=== PATIENT | male | born 1985 | race Caucasian/White ===

== ENCOUNTER 2024-05-12 05:52 | Emergency (ER) | payer SELFPAY ==
[~2024-05-12] VITALS: Ht 180.3 cm; Wt 94.3 kg
[2024-05-12 06:11] VITALS: BP 145/80; PULSE 82; RESP 20; TEMP 98.7
[2024-05-12] MEDS ORDERED: ZOFRAN ONE (06:16)
[2024-05-12] MEDS ORDERED: PROTONIX IV IV ONE (06:16)
[2024-05-12] MEDS ORDERED: NS 1000ML 1,000 ML ONE (06:16)
[2024-05-12] MEDS ORDERED: TORADOL ONE (06:16)
[2024-05-12] MEDS: ZOFRAN IV STA (06:22)
[2024-05-12] MEDS: NS 1000ML 1,000 ML IV STA (06:22)
[2024-05-12] MEDS: PROTONIX IV IV STA (06:22)
[2024-05-12] MEDS: TORADOL IV STA (06:23)
[2024-05-12 06:34] LABS: BASOPHIL # 0.1 10^3/uL (0.0-0.1); BASOPHIL % 0.6 % (0.2-1.2); EOSINOPHIL # 0.1 10^3/uL (0.0-0.2); EOSINOPHIL % 0.6 % (0.0-5.0); HEMATOCRIT(ML) 42.4 % (37.0-53.0); HEMOGLOBIN 14.8 g/dL (13.9-16.3); LYMPHOCYTES # 1.95 10^3/uL1 (1.0-4.8); LYMPHOCYTES % 22.8 % (24.0-44.0); MEAN CORP HGB 31.2 pg (26-34); MEAN CORP HGB CONCENTRATION 34.9 g/dL (33-36.5); MEAN CORP VOLUME 89.3 fL (78-100); MONOCYTES # 0.6 10^3/uL (0.3-0.8); MONOCYTES % 6.7 % (5.0-12.0); NEUTROPHIL # 5.9 10^3/uL (1.8-7.7); NEUTROPHILS % 69.1 % (41.0-85.0); PLATELET COUNT 368 10^3/uL (150-400); RED BLOOD CELL 4.75 10^6/uL (4.50-5.90); RED CELL DISTRIBUTION WIDTH 11.7 % (11.5-14.5); WHITE BLOOD CELL 8.6 10^3/uL (4.5-11.0)
[2024-05-12 06:36] LABS: +ADD MANUAL DIFF(NO CHRG) NO
[2024-05-12] MEDS ORDERED: LIDOCAINE HCL VISCOUS ONE (06:46)
[2024-05-12] MEDS ORDERED: BENTYL IM ONE (06:46)
[2024-05-12] MEDS ORDERED: MYLANTA ONE (06:46)
[2024-05-12] MEDS: MYLANTA PO STA (06:50)
[2024-05-12] MEDS: LIDOCAINE HCL VISCOUS MM STA (06:51)
[2024-05-12] MEDS: BENTYL IM STA (06:51)
[2024-05-12 06:58] LABS: PROTHROMBIN PROTIME 9.9 SEC (9.3-11.6)
[2024-05-12 07:38] VITALS: BP 140/72; PULSE 83; RESP 20; TEMP 98.7
[2024-05-12] MEDS ORDERED: ONDA-226 PO (07:58)
[2024-05-12 08:15] VITALS: BP 140/72; PULSE 83; RESP 20; TEMP 98.7
[2024-05-12 08:37] LABS: ALANINE AMINOTRANSFERASE(ML) 38 U/L (12-78); ALBUMIN(ML) 3.8 g/dL (3.4-5.0); ALBUMIN/GLOBULIN RATIO 1.151; ALKALINE PHOSPHATASE 99 U/L (50-136); ASPARTATE AMINO TRANSFERASE 16 U/L (0-35); C-REACTIVE PROTEIN < 0.50 mg/dL (0.00-5.00); CALCIUM 8.5 mg/dL (8.4-10.5); CARBON DIOXIDE 23.1 mmol/L (20.0-32); CREATININE SERUM 1.17 mg/dL (0.59-1.40); EST GFR, NON-AA 70.5 (>/=60); GLUCOSE 111 mg/dL (74-106); POTASSIUM 4.1 mmol/L (3.6-5.2); SODIUM 138 mmol/L (132-145)
[2024-05-12 08:38] LABS: TROPONIN I HIGH SENSITIVITY < 4 ng/L (0-75)
== END 2024-05-12 08:15 | disposition home or self-care (01) ==
LOC: ER 05:52
DX: R11.2 Nausea with vomiting, unspecified (principal); J44.9 Chronic obstructive pulmonary disease, unspecified; F12.90 Cannabis use, unspecified, uncomplicated; F17.200 Nicotine dependence, unspecified, uncomplicated; Z88.0 Allergy status to penicillin
CPT/HCPCS: 99285; 96374; 96361; 96375; 71045; 80053; 85025; 36415; 85379; 84484; 83605; 84145; 82077; 83690; 85610; 85730; 86140; 93005; 96372; J1885; J7030; J0500; J3490; J2405; C9113